=== PATIENT | male | born 1945 | race American Indian/Alaskan Native ===

== ENCOUNTER 2020-01-22 11:10 | Emergency (ER) | payer SELFPAY ==
[2020-01-22] MEDS ORDERED: MORPHINE 4 MG/1 ML INJ IM ONE (11:55)
--- NOTE | 2020-01-22 11:56 | Emergency Department Report ---
ED Male HPI - General Chief complaint: Urogenital-Male Stated complaint: CANT URINATE Time Seen by Provider: 01/22/20 11:50 Source: patient, RN notes reviewed Mode of arrival: Ambulatory Limitations: No Limitations - History of Present Illness Initial comments: The patient was evaluated in the emergency department for symptoms described in the history of present illness. He/she was evaluated in the context of the global COVID-19 pandemic, which necessitated consideration that the patient might be at risk for infection with the virus that causes COVID-19. Institutional protocols and algorithms that pertain to the evaluation of patients at risk for COVID-19 are in a state of rapid change based on information released by regulatory bodies including the CDC and federal and state organizations. These policies and algorithms were followed during the patient's care in the emergency department. Please note that these policies, procedures and recommendations changed on a rapid basis. Neurology: Dr. Israel Martinez the patient is a 74-year-old gentleman. He endorses a history of "enlarged prostate and hypertension." He reports that a few weeks ago, his private urologist performed a same-day procedure in the office to "burn away the prostate." He believes he had a resume procedure. The patient presents to the emergency room today with an acute complaint of inability to urinate, And blood coming from his urethra. He has chronic intermittent difficulty with urination. He states his procedure as mentioned was a few weeks ago, and he was "doing fine." His symptoms started this morning. They are constant. They do not radiate anywhere. I do not have exacerbating or relieving factors. No headache, neck pain, chest pain, upper abdominal pain, shortness of breath, nausea, vomiting, diarrhea, hematemesis or bright red blood per rectum. He denies dysuria and testicular pain. MD Complaint: other -: Sudden, hour(s) Consistency: constant Improves with: none Worsens with: none, other recent surgery urinary retention, blood in urine - Related Data Home Medications Medication Instructions Recorded Confirmed Last Taken Flomax 0.4 mg PO DAILY 01/22/20 01/22/20 Unknown Metoprolol 50 mg PO BID 01/22/20 01/22/20 Unknown Rosuvastatin (Nf) 40 mg PO HS 01/22/20 01/22/20 Unknown glipiZIDE 5 mg PO DAILY 01/22/20 01/22/20 Unknown metFORMIN 500 mg PO BID 01/22/20 01/22/20 Unknown traZODone 100 mg PO HS 01/22/20 01/22/20 Unknown Previous Rx's Medication Instructions Recorded Last Taken Type Potassium Chloride [K-Dur] 20 meq PO BID #30 tab 01/22/20 Unknown Rx Allergies Allergy/AdvReac Type Severity Reaction Status Date / Time No Known Allergies Allergy Verified 01/22/20 12:18 ED Review of Systems ROS: Stated complaint: CANT URINATE Other details as noted in HPI Constitutional: denies: fever Eyes: denies: eye discharge ENT: denies: epistaxis Respiratory: denies: cough Cardiovascular: denies: chest pain Gastrointestinal: denies: nausea, vomiting, diarrhea, hematemesis, melena, hematochezia Genitourinary: as per HPI, hematuria. denies: testicular pain, testicular mass Musculoskeletal: denies: myalgia Skin: denies: lesions Neurological: denies: weakness Hematological/Lymphatic: denies: easy bleeding ED Past Medical Hx - Past Medical History Previous Medical History?: Yes Hx Hypertension: Yes Hx Diabetes: Yes Additional medical history: BPH - Surgical History Past Surgical History?: Yes Hx Open Heart Surgery: Yes Additional Surgical History: Back, Neck - Social History Smoking Status: Current Every Day Smoker Substance Use Type: Prescribed - Medications Home Medications: Home Medications Medication Instructions Recorded Confirmed Last Taken Type Flomax 0.4 mg PO DAILY 01/22/20 01/22/20 Unknown History Metoprolol 50 mg PO BID 01/22/20 01/22/20 Unknown History Potassium Chloride [K-Dur] 20 meq PO BID #30 tab 01/22/20 Unknown Rx Rosuvastatin (Nf) 40 mg PO HS 01/22/20 01/22/20 Unknown History glipiZIDE 5 mg PO DAILY 01/22/20 01/22/20 Unknown History metFORMIN 500 mg PO BID 01/22/20 01/22/20 Unknown History traZODone 100 mg PO HS 01/22/20 01/22/20 Unknown History ED Physical Exam - General Limitations: No Limitations General appearance: alert, anxious, in distress - Head Head exam: Present: atraumatic, normocephalic - Eye Eye exam: Present: normal appearance, EOMI. Absent: nystagmus - ENT ENT exam: Present: normal exam, normal orophraynx, mucous membranes moist, chasity l external ear exam - Neck Neck exam: Present: normal inspection, full ROM. Absent: tenderness, meningismus - Respiratory Respiratory exam: Present: normal lung sounds bilaterally. Absent: respiratory distress, wheezes, rales, rhonchi, stridor, decreased breath sounds - Cardiovascular Cardiovascular Exam: Present: regular rate, normal rhythm, normal heart sounds. Absent: bradycardia, tachycardia, irregular rhythm, systolic murmur, diastolic murmur, rubs, gallop - GI/Abdominal GI/Abdominal exam: Present: soft. Absent: distended, tenderness, guarding, rebound, rigid, pulsatile mass - Rectal Rectal exam: Present: deferred - exam: Present: normal inspection, other (There is normal testicular lie. There is normal cremasteric reflex. There is no testicular tenderness. There is no testicular swelling). Absent: testicular tenderness, circumcision (The patient is uncircumcised. The foreskin retracts easily.) External exam: Present: normal external exam, other (Chaperoned by nurse Kevin Matthews. There is gross blood coming from the urethral meatus) - Extremities Exam Extremities exam: Present: normal inspection, full ROM, other (2+ pulses noted in the bilateral upper and lower extremities. There is no palpable cord. negative Homans sign. Muscular compartments are soft. The pelvis is stable.). Absent: calf tenderness - Back Exam Back exam: Present: normal inspection, full ROM. Absent: tenderness, CVA tenderness (R), CVA tenderness (L), paraspinal tenderness, vertebral tenderness - Neurological Exam Neurological exam: Present: alert, normal gait, other (No facial droop. Tongue midline. Extraocular movements intact bilaterally. Facial sensation intact to light touch in V1, V2, V3 distribution bilaterally. 5 and a 5 strength in 4 extremities. Sensation intact to light touch in 4 extremities.) - Psychiatric Psychiatric exam: Present: anxious - Skin Skin exam: Present: warm, dry, intact, normal color. Absent: rash ED Course Vital Signs 01/22/20 01/22/20 11:42 12:13 Temperature 98.1 F Pulse Rate 95 H 79 Respiratory 14 16 Rate Blood Pressure 177/107 Blood Pressure 147/86 [Left] O2 Sat by Pulse 98 96 Oximetry - Reevaluation(s) Reevaluation #1: 01/22/20 12:05 Differential diagnosis, including but not limited to: BPH, obstructive uropathy, hemorrhagic cystitis Assessment and plan: 74-year-old gentleman, approximately 2 weeks status post outpatient urologic procedure, who now presents with urinary retention, and minimal blood from urethral meatus. Hypertension reviewed and appreciated, likely secondary to acute pain and acute urinary retention. Check appropriate laboratory studies including urinalysis, we have placed a call out to his urologist of record, Dr. Martinez, I am waiting for him to call back, nursing team to insert Alarcon catheter, and irrigate copiously. We will also treat the patient's pain. We will reassess after his data points have resulted. I have discussed this plan of care with the patient, who verbalized understanding, and who is amenable to this plan of care Reevaluation #2: 01/22/20 12:59 Patient reports that he feels much improved. Alarcon catheter is now draining yellow urine, hematuria has cleared up and resolved. Patient states all of his symptoms have resolved, blood pressure now in the 140s/150s. Laboratory studies and urinalysis pending. Reevaluation #3: 01/22/20 14:03 Final reevaluation. Patient is dressed and asking to go. Laboratory studies reviewed and appreciated. Urinalysis not consistent with infectious pathology. Hypokalemia incidental, patient will be discharged with potassium prescription - Consultations Consultation #1: 01/22/20 12:09 Discussed history, physical, and plan of care with patient's primary neurologist Dr. Martinez, he is in agreement with plan. Alarcon catheter will be placed, patient will be copiously irrigated, and if, hematuria clears, plan to discharge with Alarcon catheter and leg bag, and close outpatient urologic follow-up ED Medical Decision Making - Lab Data Result diagrams: 01/22/20 12:24 01/22/20 12:24 Vital Signs 01/22/20 11:42 Temperature 98.1 F Pulse Rate 95 H Respiratory 14 Rate Blood Pressure 177/107 O2 Sat by Pulse 98 Oximetry Critical care attestation.: If time is entered above; I have spent that time in minutes in the direct care of this critically ill patient, excluding procedure time. ED Disposition Clinical Impression: Hematuria, Urinary retention, Elevated blood pressure reading, Hypokalemia Disposition: DC-01 TO HOME OR SELFCARE Is pt being admited?: No Does the pt Need Aspirin: No Condition: Stable Additional Instructions: Cultures were sent today, and results will be available in the next 3 to 5 days. Please have your primary care doctor or urologist contact the medical records department to obtain culture results. Please follow-up with your urologist within the next 7 to 10 days. Keep the Alarcon catheter in place, and follow-up with your outpatient urologist for trial of void. Minimize consumption of Motrin, ibuprofen, Naprosyn, Aleve. Please return to the emergency room right away with new pain, worsening pain, migration of pain, Projectile vomiting, change in mental status, confusion, inability to tolerate liquid feeds, new, worsened or different symptoms not present on the initial emergency room evaluation Otherwise, please continue current outpatient medications. Take the potassium supplementation as directed. Follow-up with your primary care doctor within the next month for repeat potassium check. Referrals: SAMY MARTINEZ MD [Staff Physician] - 3-5 Days
[2020-01-22 12:14] VITALS: BP 147/86
[2020-01-22 13:06] LABS: Bilirubin,Urine NEG (Negative); Blood,Urine LG (Negative); Color,Urine Red (Yellow); Urobilinogen,Urine < 2.0 mg/dL (<2.0)
[2020-01-22 13:07] LABS: RBC,Urine > 182.0 /HPF (0.0-6.0)
[2020-01-22 13:16] LABS: Hematocrit 37.7 % (35.5-45.6); Hemoglobin 12.5 gm/dl (11.8-15.2); Mean Corpuscular HGB Conc 33 % (32-34); Mean Corpuscular Volume 76 fl (84-94); Platelet Count 195 K/mm3 (140-440); Red Blood Count 4.96 M/mm3 (3.65-5.03); Red Cell Distribution Width 16.7 % (13.2-15.2)
[2020-01-22 13:27] LABS: INR 1.03 (0.87-1.13)
[2020-01-22 13:37] LABS: BUN/Creatinine Ratio 20; Blood Urea Nitrogen 18 mg/dL (9-20); Calcium 9.5 mg/dL (8.4-10.2); Hemolysis Index 5
[2020-01-22] MEDS ORDERED: POTASSIUM CHLORIDE ER 20 MEQ TAB PO ONE (14:00)
== END 2020-01-22 14:20 | disposition home or self-care (01) ==
LOC: ED 11:10
DX: E87.6 Hypokalemia (principal); R31.9 Hematuria, unspecified; R33.9 Retention of urine, unspecified; R03.0 Elevated blood-pressure reading, without diagnosis of hypertension; I10 Essential (primary) hypertension; F31.9 Bipolar disorder, unspecified; E11.9 Type 2 diabetes mellitus without complications; F17.200 Nicotine dependence, unspecified, uncomplicated; Z98.890 Other specified postprocedural states; Z79.899 Other long term (current) drug therapy
CPT/HCPCS: 36415; 51702; 80048; 81001; 82550; 83735; 85027; 85610; 87086